=== PATIENT | female | born 1980 | race Caucasian/White ===

== ENCOUNTER → 2016-12-14 | Outpatient (CLI) | payer OTHER ==
[~2016-12-14] MED LIST: ACET500C PO; HCTZ PO; IBUP80TA PO; IRON325T PO; METO50TA2 PO; PRENATAL VITAMIN PO; SYNT100T PO
== END ==
LOC: M SMT 15:56
PROVIDERS: ATTEND Advanced Practice Midwife
DX: N91.1 Secondary amenorrhea (principal)